=== PATIENT | female | born 1995 | race Caucasian/White ===

== ENCOUNTER → 2017-04-29 | Day surgery (SDC) | payer OTHER ==
[~2017-04-29] VITALS: Ht 160 cm; Wt 76.2 kg
[~2017-04-29] MED LIST: 0.9% Sodium Chloride 1,000 ML IV PRN; HYDR-3090 PO; LEVO1TAB56 PO; Lactated Ringer's 1,000 ML IV ONE; Sodium Chloride LOK Flush 10 mL Syringe IV PRN; fentaNYL-PF 50 mCg/mL 2 mL Inj IVPUSH PRN
[2017-04-29 09:04] VITALS: BP 126/85; PULSE 89; O2SAT 98
--- NOTE | 2017-04-29 09:36 | PCM.ENDEGD ---
EGD Date of Service: Apr 29, 2017 Physician Soy Cook MD Pre Procedure Diagnosis: abd pain Post Procedure Dx & Findings: esophageal nodule Procedure Esophagogastroduodenoscopy PROCEDURE IN DETAIL: After proper sedation, Olympus video endoscope was inserted into patient's mouth and esophagus was successfully intubated. Scope introduced esophagus. Esophagus showed normal shiny whitish mucosa consistent with squamous cell component. Z line was intact at 40 cm from the incisors. There was a less than 1 mm nodule near the GE junction. This was biopsied and removed. Scope further advanced to the stomach. Stomach showed normal shiny mucosa with normal appearing rugae folds without any ulcer mass erosion. Cardia fundus body antrum pylorus were all visualized. However random biopsies taken from the proximal and distal stomach through diagnosis of gastroparesis. Retroflexion was done. Stomach was easily inflated and deflatable using air. Scope further advanced to the distal duodenum. Duodenum revealed normal villous structures with normal appearing folds without any mass ulcer erosion. Impression Gastroparesis without pyloric stenosis Esophageal nodule status post biopsy and complete removal. Recommendation Follow up in GI clinic Presedation Assessment Risks and Benefits Informed consent was obtained from the patient after all risks and benefits including but not limited to drug reaction, infection, pain, bleeding, perforation, as well as alternatives were discussed. Patient monitoring Continuous pulse oximetry, cardiac monitoring, blood pressure monitoring, IV access, and oxygen at 2L per nasal cannula. Periprocedural Fentanyl: Fentanyl 150mcg Incrementally Midazolam: Midazolam 8mg Incrementally Complications There were no periprocedural complications identified. Post Procedure Plan Post Procedure Recommendations 1. Restrict activities today. 2. Resume normal activities in the morning. 3. Resume medications. 4. GERD behavioral modification: - Avoid fatty, acidic, spicy, large meals - Do not lie down after meals - Do not eat or drink anything for at least 2 1/2 hours before going to bed at night - Discontinue tobacco and alcohol - Decrease or avoid caffeine - Avoid chocolate and mints - Decrease weight - Avoid aspirin and non steroidal anti-inflammatory agents (NSAID) such as Aleve, Advil, Mobic, Naproxen, Ibuprofen, etc 5. Add proton pump inhibitor. Take 30 minutes before 1st meal of the day. 6. Patient informed of normal post procedure side effects as bloating, drowsiness, blood streaking in the stool 7. If gastric biopsy reveal H.pylori, continue with appropriate treatment 8. If small bowel biopsy reveals celiac, continue with appropriate treatment 9. Please don't hesitate to call me with any questions Soy Cook MD Apr 29, 2017 09:36
[2017-04-29 09:43] VITALS: BP 114/59; PULSE 74; RESP 14; O2SAT 100
[2017-04-29 09:51] VITALS: BP 102/57; PULSE 72; RESP 12; O2SAT 99
--- NOTE | 2017-05-03 13:33 | PATH ---
SURGICAL PATHOLOGY Attending Physician:Soy Cook M.D. CASE STATUS: Signed Out PATIENT NAME: TARUN BAUTISTA PID: [id number] : 1995 DATE COLLECTED:04/29/2017 21:45 SPECIMEN: 1: Gastric, Biopsy 2: Esophagus, Biopsy CLINICAL HISTORY: 1). GASTRIC BIOPSY, RULE OUT H.PYLORI 2). DISTAL ESOPHAGUS NODULE BIOPSY FINAL DIAGNOSIS: 1. Stomach, Biopsy: Gastric body mucosa with mild chronic gastritis. Negative for Helicobacter organisms by immunohistochemistry. Negative for intestinal metaplasia, dysplasia, and malignancy. 2. Distal Esophagus Nodule, Biopsy: Squamous mucosa with no diagnostic abnormality; see comment. Intraepithelial eosinophils are not increased. Negative for intestinal metaplasia, dysplasia, and malignancy. ICD10: R10.9 NOTE: Part 2: In the distal esophageal biopsy, there is a prominent dilated submucosal duct without evidence of neoplasm, which may explain the endoscopic impression of a nodule. GROSS DESCRIPTION: The specimen is received in two formalin filled containers labeled with the patient's name. 1). The specimen is labeled "gastric" and consists of 2 portions of tissue which aggregate to 0.2 x 0.2 x 0.2 CM. The specimen is entirely submitted in cassette 1A. 2). The specimen is labeled "distal esophagus nodule" and consists of a 0.2 x 0 2 x 0.2 CM portion of tissue which is entirely submitted in cassette 2A. 04/29/2017DC MICRO DESCRIPTION: Part 1: An immunohistochemical stain was performed to evaluate for Helicobacter organisms and is negative. A control stain showed appropriate reactivity. * This test was developed and its performance characteristics determined by [facility]. It has not been cleared or approved by the [place]. Food and Drug Administration. The FDA has determined that such clearance or approval is not necessary. This test is used for clinical purposes. It should not be regarded as investigational or for research. ICD-9 CODES: CPT CODES: 1: 03846, 22757 2: 62276 Electronically Signed Out Nadir Thomas MD, Ph.D. [facility] [address], [place] [address] Technical component performed at [facility], [address], [place], [address]
== END | disposition home or self-care (01) ==
LOC: END 00:31
PROVIDERS: ATTEND Internal Medicine
DX: R10.9 Unspecified abdominal pain (principal); K29.50 Unspecified chronic gastritis without bleeding; Z79.899 Other long term (current) drug therapy; K31.84 Gastroparesis
CPT/HCPCS: 43239; G0500; J2250; J3010; J7030